=== PATIENT | male | born 1995 | race Caucasian/White ===

== ENCOUNTER 2021-09-02 00:53 | Emergency (ER) | payer SELFPAY ==
[2021-09-02 04:20] VITALS: BP 140/81
--- NOTE | 2021-09-02 04:50 | XRay Report ---
RIGHT FOREARM 2 VIEW(S) INDICATION / CLINICAL INFORMATION: INJURY COMPARISON: None available. FINDINGS: No fracture, dislocation, or significant soft tissue abnormality is demonstrated. No radiopaque forei gn bodies are identified. IMPRESSION: 1. No acute findings. No significant abnormality. Signer Name: Michi Daly II, MD Signed: 09/02/2021 4:45 AM Workstation Name: [id number]
== END 2021-09-03 08:58 | disposition left against medical advice (07) ==
LOC: ED 00:53
DX: Z04.1 Encounter for examination and observation following transport accident (principal); Z53.21 Procedure and treatment not carried out due to patient leaving prior to being seen by health care provider; V89.2XXA Person injured in unspecified motor-vehicle accident, traffic, initial encounter; Y93.89 Activity, other specified; Y92.89 Other specified places as the place of occurrence of the external cause; Y99.8 Other external cause status